=== PATIENT | male | born 1950 | race Caucasian/White ===

== ENCOUNTER 2019-06-20 12:30 | Inpatient (IN) | payer OTHER, MEDICARE ==
[~2019-06-20] VITALS: Ht 182.9 cm; Wt 99.1 kg
[~2019-06-20 12:30] MED LIST: CHLO4 PO; CITA20 PO; LAMO100 PO; LISI5 PO; PRAZ2 PO; SIMV10 PO
[2019-06-20 12:59] LABS: Hematocrit 51.5 % (37.0-53.0); Hemoglobin 14.2 g/dL (13.5-17.5); Mean Corpuscular HGB 27.8 pg (26.0-34.0); Mean Corpuscular HGB Conc 27.6 g/dL (31.5-36.5); Mean Corpuscular Volume 101 fL (80-100); Mean Platelet Volume 11.1 fL (9.1-12.4); NRBC Auto 1.1 /100 WBC (0.0-0.2); Platelet Count 219 K/mm3 (150-400); RDW Coefficient Variation 18.4 % (11.7-14.2); White Blood Cell Count 45.26 K/mm3 (4.00-11.30)
[2019-06-20 13:14] LABS: CPK Creatine Kinase 92 U/L (39-308); Creatine Kinase MB 2.9 ng/mL (0.0-3.6); Creatine Kinase MB Index 3.2 (0.0-4.0); Salicylate 1.9 mg/dL (2.8-20.0); Troponin I 0.087 ng/mL (0.000-0.040)
[2019-06-20 13:15] LABS: PCO2 Arterial > 105 mmHg (35-45); PO2 Arterial 320 mmHg (80-100); pH Blood Arterial 7.17 (7.35-7.45)
[2019-06-20 13:21] LABS: Acetaminophen, Random <2.0 ug/mL (10.0-30.0); Alanine Aminotransfer (ALT/SGP 63 U/L (12-78); Albumin, Blood 3.5 g/dL (3.4-5.0); Alk Phos 73 U/L (50-136); Anion Gap 0 mmol/L (6-16); Aspartate Aminotrans (AST/SGOT 33 U/L (12-37); Bilirubin, Total 0.4 mg/dL (0.1-1.0); Blood Urea Nitrogen 35 mg/dL (8-24); Bun/Creatinine Ratio 30.2 (12.0-20.0); CO2, Blood 36 mmol/L (21-32); Calcium, Blood 7.7 mg/dL (8.5-10.1); Chloride, Blood 100 mmol/L (98-108); Creatinine, Blood 1.16 mg/dL (0.60-1.20); Globulin, Blood 3.4 g/dL (2.2-4.0); Glomerular Filtration Rate >60 (60-); Glucose, Blood 123 mg/dL (70-99); Potassium, Blood 6.5 mmol/L (3.5-5.5); Sodium, Blood 136 mmol/L (136-145); Total Protein, Blood 6.9 g/dL (6.4-8.2)
[2019-06-20 13:25] LABS: Calcium, Ionized (POC) 1.01 mmol/L (1.10-1.46); Chloride (POC) 97 mmol/L (98-108); Creatinine (POC) 1.2 mg/dL (0.8-1.3); Glucose (ISTAT POC) 126 mg/dL (70-99); Hemoglobin (POC) 16.7 g/dL (13.5-17.5); Potassium (POC) 6.2 mmol/L (3.5-5.5); Sodium (POC) 136 mmol/L (135-148); Total CO2 (POC) 39 mmol/L (21-32)
[2019-06-20 13:27] LABS: Source, Urine Catheter
[2019-06-20 13:28] LABS: BASOPHILS PERCENT MAN 0 % (0-2); EOSINOPHILS ABSOLUTE MAN 0.45 K/mm3 (0.00-0.68); EOSINOPHILS PERCENT MAN 1 % (0-6); LYMPHOCYTES ABSOLUTE MAN 31.22 K/mm3 (0.84-5.20); LYMPHOCYTES PERCENT MAN 69 % (21-46); MONOCYTES ABSOLUTE MAN 1.81 K/mm3 (0.16-1.47); MONOCYTES PERCENT MAN 4 % (4-13); MYELOCYTE ABSOLUTE MAN 0.45 K/mm3 (0.00-0.00); MYELOCYTE PERCENT MAN 1 % (0-0); NEUTROPHILS ABSOLUTE MAN 11.31 K/mm3 (1.96-9.15); SEG NEUTROPHILS PERCENT MAN 25 % (41-73); TOTAL CELLS COUNTED 100
[2019-06-20 13:32] LABS: Bilirubin, Urine Neg (Neg); Blood, Urine Neg (Neg); Glucose Qualitative, Urine Neg (Neg); Ketones, Urine Neg (Neg); Leukocyte Esterase, Urine Neg (Neg); Nitrite, Urine Neg (Neg); Protein, Urine 2+ (Neg); Specific Gravity, Urine 1.025 (1.003-1.022); Urobilinogen, Urine 2+ (Normal)
[2019-06-20 13:43] LABS: Appearance, Urine Clear (Clear); Color, Urine Yellow (P-Yellow)
[2019-06-20 13:44] LABS: Red Blood Cells, Urine 0-2 /hpf (0-2)
[2019-06-20 13:45] LABS: Bacteria Few /hpf; Squamous Epithelial Cells Not Seen /hpf (Few)
[2019-06-20 13:47] LABS: U Amphetamine Screen Not Detected; U Barbituate Screen Not Detected; U Benzodiazapine Screen Not Detected; U Buprenorphine Screen Not Detected; U Cannabinoids Screen DETECTED; U Cocaine Screen Not Detected; U Methadone Screen Not Detected; U Methamphetamine Screen Not Detected; U Opiates Screen Not Detected; U Oxycodone Screen Not Detected; U Phencyclidine Screen Not Detected; U Propoxyphene Screen Not Detected
[2019-06-20 13:48] LABS: Influenza A Negative (NEGATIVE); Influenza B Negative (NEGATIVE)
[2019-06-20 15:00] LABS: PCO2 Arterial 75 mmHg (35-45); pH Blood Arterial 7.27 (7.35-7.45)
[2019-06-20 15:01] LABS: PO2 Arterial 56 mmHg (80-100)
--- NOTE | 2019-06-20 15:30 | NUR ---
PT. ARRIVED TO ICU 11 VIA GURNEY. PT INTUBATED, SEDATED WITH PROPAFOL, ANTONIO. WRIST RESTR. IN PLACE. DR. SHEFFIELD AWARE OF CONSULT. MONITOR SHOWS SR. SBP LABILE ON THE PROPAFOL. PT. ON HIS 3 RD LITER FLUID BOLUS FROM ER. PROPAFOL DECREASED TO 30 MCG FROM INITIAL OF [address], BT HYPO. LUNGS SOUNDS WITH COARSE RHONCHI SCATTERED AND WHEEZES T/O. SAO2 > 95%. PT. HAS COPIOUS ORAL SECRETIONS. TEMP CARMONA INTACT WITH SL. ANTHONY URINE.
[2019-06-20 16:40] LABS: Anion Gap 1 mmol/L (6-16); Blood Urea Nitrogen 30 mg/dL (8-24); Bun/Creatinine Ratio 27.8 (12.0-20.0); CO2, Blood 32 mmol/L (21-32); Chloride, Blood 108 mmol/L (98-108); Creatinine, Blood 1.08 mg/dL (0.60-1.20); Glomerular Filtration Rate >60 (60-); Glucose, Blood 111 mg/dL (70-99); Potassium, Blood 4.6 mmol/L (3.5-5.5); Sodium, Blood 141 mmol/L (136-145)
--- NOTE | 2019-06-20 17:00 | NUR ---
CONSULT DONE BY DR. SHEFFIELD. ORDERS FOR CALCIUM GLUCONATE RECEIVED FOR LEVEL OF 5.6.
[2019-06-20 17:08] LABS: Calcium, Blood 5.6 mg/dL (8.5-10.1)
--- NOTE | 2019-06-20 19:00 | NUR ---
REPORT TO DOMINIC. PICC PLACEMENT BEING DONE AT THIS TIME. PT. CONT WITH LABILE SBP. PROPAFOL DECREASED TO 25 MCG.
--- NOTE | 2019-06-20 19:15 | NUR ---
ASSUMED CARE BEDSIDE REPORT RECIEVED. PICC LINE INSERTION IN PROGRESS AT THIS TIME. PT IS INTUBATED AND SEDATED. PT RESTLESS AT TIMES, NOT FOLLOWING COMMANDS. VENT SETTINGS AC 18, TV 450, PEEP 5, FIO2 60%. PT WITH SBP 80-90'S. NS INFUSING AT 100 ML/HR. PROPOFOL AT 20 MCG/KG/MIN. OGT IN PLACE, CLAMPED. SBW RESTRAINTS IN PLACE. CARMONA TEMP PROBE IN PLACE. WILL CONTINUE TO MONITOR.
[2019-06-20 20:18] LABS: Bicarbonate Venous 27.6 mmol/L (24.0-30.0); PCO2 Venous 71.4 mmHg (38-42); PO2 Venous 54.1 mmHg (38-42); pH Blood Venous 7.27 (7.34-7.37)
[2019-06-21 03:26] LABS: Hematocrit 42.4 % (37.0-53.0); Hemoglobin 12.1 g/dL (13.5-17.5); Mean Corpuscular HGB 28.1 pg (26.0-34.0); Mean Corpuscular HGB Conc 28.5 g/dL (31.5-36.5); Mean Corpuscular Volume 99 fL (80-100); Mean Platelet Volume 10.7 fL (9.1-12.4); NRBC ABSOLUTE 0.13 K/mm3 (0.00-0.02); NRBC Auto 0.5 /100 WBC (0.0-0.2); Platelet Count 156 K/mm3 (150-400); RDW Standard Deviation 61.3 fL (35.1-46.3); White Blood Cell Count 25.92 K/mm3 (4.00-11.30)
[2019-06-21 03:46] LABS: Albumin, Blood 2.6 g/dL (3.4-5.0); Bilirubin, Total 0.4 mg/dL (0.1-1.0); Bun/Creatinine Ratio 26.9 (12.0-20.0); Creatinine, Blood 1.3 mg/dL (0.60-1.20); Globulin, Blood 2.5 g/dL (2.2-4.0); Potassium, Blood 5.6 mmol/L (3.5-5.5); Total Protein, Blood 5.1 g/dL (6.4-8.2)
[2019-06-21 04:26] LABS: BAND PERCENT MAN 6 % (0-8); BASOPHILS PERCENT MAN 0 % (0-2); EOSINOPHILS PERCENT MAN 0 % (0-6); LYMPHOCYTES ABSOLUTE MAN 11.66 K/mm3 (0.84-5.20); LYMPHOCYTES PERCENT MAN 45 % (21-46); MONOCYTES ABSOLUTE MAN 0.51 K/mm3 (0.16-1.47); MONOCYTES PERCENT MAN 2 % (4-13); MYELOCYTE ABSOLUTE MAN 0.25 K/mm3 (0.00-0.00); MYELOCYTE PERCENT MAN 1 % (0-0); NEUTROPHILS ABSOLUTE MAN 13.47 K/mm3 (1.96-9.15); SEG NEUTROPHILS PERCENT MAN 46 % (41-73); TOTAL CELLS COUNTED 100
[2019-06-21 05:43] LABS: PCO2 Arterial 61.3 mmHg (35-45); pH Blood Arterial 7.32 (7.35-7.45)
--- NOTE | 2019-06-21 06:06 | NUR ---
SHIFT SUMMARY NO ACUTE CHANGES THIS SHIFT. PT HAS REMAINED ON VENT, SETTINGS AC 18, TV 450, PEEP 5, FIO2 70. SBP HAS SLOWLY TRENDED DOWN THROUGHOUT THE SHIFT, REQUIRING LEVOPHED UP TO 8 MCG/MIN. PICC REMAINS C/D/I TO ASHOK WITH LEVOPHED CURRENTLY INFUSING AT 6 MCG/MIN, PROPOFOL AT 40 MCG/KG/MIN, AND NS AT 100 ML/HR. OGT TO LIS WITH BILE OUTPUT NOTED. CARMONA TEMP PROBE REMAINS IN PLACE WITH CLOUDY ORANGE URINE OUTPUT NOTED. SBW RESTRAINTS REMAIN IN PLACE. RESTLESS AT TIMES, AND WITHDRAWS TO NOXIOUS STIMULI. NO FAMILY AT BEDSIDE. WILL CONTINUE TO MONITOR AND REPORT OFF TO ONCOMING RN.
--- NOTE | 2019-06-21 07:33 | NUR ---
START OF SHIFT NOTE: RECEIVED REPORT FROM DOMINIC BUNDY RN, ASSUMED CARE, PATIENTIS SEDATED AND ON MECHANICAL VENTILATION, SOME GROSS EXTREMITY MOVEMENT NOTED WHEN LEGS ARE TOUCHED OR ORAL CARE IS PERFORMED, PATIENT IS UNABLE TO FOLLOW COMMANDS AT THIS TIME, NO EYE OPENING NOTED, VENT SETTINGS ARE 18/5/450/FiO2 70 %, PROPOFOL AT 40 MCG, PATIENT ALSO HAS LEVOPHED INFUSING AT 6 MCG, ALSO HAS NS INFUSING AT 100 CC/HR AND ZOSYN AT 25 CC/HR, VSS, TEMP SLIGHTLY ELEVATED AT 99.1, RESTRAINTS IN PLACE, OG TO LIS, SOME BILE LIKE FLUIDS OUT, ORAL CARE DONE, LUNG SOUNDS ARE COARSE AND RHONCHI NOTED, SR, BOWEL TONES HYPOACTIVE, CARMONA CATHETER IN PLACE, DRAINING YELLOW/INK URINE, PATIENT LOOKS COMFORTABLE AT THIS TIME, CALL LIGHT IN REACH, WILL CONTINUE TO MONITOR.
--- NOTE | 2019-06-21 07:50 | NUR ---
DR. BERNAL IN TO SEE PATIENT, NEW ORDERS RECEIVED.
--- NOTE | 2019-06-21 08:16 | NUR ---
PATIENT'S FRIEND MERNA, WHO FOUND PATIENT DOWN, CALLED AND UPDATE WAS PROVIDED, HE WILL UPDATE FAMILY, PATIENT'S MOTHER AND BROTHER, IN [place], [place].
--- NOTE | 2019-06-21 08:53 | NUR ---
DR. CORNELIUS IN TO SEE PATIENT, FOLLOWING PATIENT SINCE 2013 FOR HIS LYMPHOMA, PLEASE SEE HIS NOTE.
[2019-06-21 09:33] LABS: Uric Acid, Blood 7.9 mg/dL (3.5-7.2)
--- NOTE | 2019-06-21 10:16 | NUR ---
DR. SHEFFIELD IN TO SEE PATIENT, NEW ORDERS RECEIVED.
--- NOTE | 2019-06-21 12:00 | NUR ---
PATIENT CONTINUES ON MECHANICAL VENTILATION, SETTINGS UNCHANGED, LEVOPHED DECREASED TO 5 MCG, PROPOFOL DECREASED TO 25, PRECEDEX AT O.7 AT THIS TIME, PATIENT RESPONDS TO STIMULI, BUT DOES NOT OPEN HIS EYES OR FOLLOW ANY COMMANDS, VSS, ORAL CARE PROVIDED AND FREQUENT REPOSITIONING, CALL LIGHT IN REACH, WILL CONTINUE TO MONITOR.
--- NOTE | 2019-06-21 12:24 | NUR ---
ECHOCARDIOGRAM COMPLETED
--- NOTE | 2019-06-21 16:33 | NUR ---
PATIENT'S DAUGHTER AMOL CALLED AND WAS PROVIDED WITH AN UPDATE ON PATIENT CONDITION.
--- NOTE | 2019-06-21 17:42 | NUR ---
SHIFT SUMMARY NOTE: NO ACUTE EVENTS DURING THIS SHIFT, PATIENT IS ON PROPOFOL AT 20, LEVOPHED AT 3, AND PRECEDEX AT 0.7, VSS, CONTINUES TO HAVE A LOW GRADE TEMP OF 100.2, DR. SHEFFIELD AWARE, CONTINUES ON MECHANICAL VENTILATION, SETTINGS 18/5/450 Vt/FiO2 65 %, PATIENT HAS PINPOINT PUPILS, AND CONTINUES TO BE UNRESPONSIVE, NONPURPOSEFUL MOVEMENTS, RESPONDS TO PAIN, UNABLE TO FOLLOW COMMANDS, ECHO WAS DONE AND SHOWED EF OF 70-75 %, DR. CORNELIUS IN, BUT WILL NOT TREAT ANYTHING AT THIS TIME, PATIENT CONTINUES TO RECEIVE VANCO AND ZOSYN, RESTRAINTS IN PLACE, CARMONA DRAINING LARGE AMOUNTS OF DARK YELLOW URINE WHICH HAS LESS CLOUDINESS AND SEDIMENT, FOR DETAILS SEE SHIFT ASSESSMENT DOCUMENTATION AND NURSES NOTES, CALL LIGHT IN REACH, WILL CONTINUE TO MONITOR, AND GIVE REPORT TO ONCOMING HEALTH AND SAFETY TECHNICIAN.
--- NOTE | 2019-06-21 22:13 | NUR ---
ASSUMPTION OF CARE: PT INTUBATED AND SEDATED. ROUSES TO NOXIOUS STIMULI. DOES NOT FOLLOW COMMANDS. PUPILS PINPOINT AND NOT REACTIVE.LUNG SOUNDS COURSE IN UPPER LOBES AND DIM IN BASES. AC VENT SETTINGS 18/450/5/65%. NSR, ELEVATED T WAVE, HR IN THE 70S, SBP STABLE IN 100-110S. BT X 4. CARMONA IN PLACE DRAINING TO GRAVITY. PICC TO ASHOK, INFUSING. LEVO AT 2 MCG, PROP AT 20, PRECEDEX AT 0.7MCG.
[2019-06-22 03:25] LABS: Base Excess Venous 7.4 mmol/L; Bicarbonate Venous 29.4 mmol/L (24.0-30.0); PO2 Venous 40.4 mmHg (38-42); pH Blood Venous 7.41 (7.34-7.37)
[2019-06-22 03:46] LABS: Hematocrit 45.6 % (37.0-53.0); Hemoglobin 13.5 g/dL (13.5-17.5); Mean Corpuscular HGB 28.4 pg (26.0-34.0); Mean Corpuscular HGB Conc 29.6 g/dL (31.5-36.5); Mean Platelet Volume 11.5 fL (9.1-12.4); NRBC ABSOLUTE 0.02 K/mm3 (0.00-0.02); NRBC Auto 0.1 /100 WBC (0.0-0.2); Platelet Count 169 K/mm3 (150-400); RDW Coefficient Variation 17.8 % (11.7-14.2); RDW Standard Deviation 58.6 fL (35.1-46.3); Red Blood Cell Count 4.76 M/mm3 (4.30-5.90); White Blood Cell Count 22.75 K/mm3 (4.00-11.30)
[2019-06-22 03:49] LABS: Mean Corpuscular Volume 96 fL (80-100)
[2019-06-22 04:03] LABS: Anion Gap 3 mmol/L (6-16); Blood Urea Nitrogen 24 mg/dL (8-24); Bun/Creatinine Ratio 24.3 (12.0-20.0); CO2, Blood 31 mmol/L (21-32); Calcium, Blood 7.5 mg/dL (8.5-10.1); Chloride, Blood 109 mmol/L (98-108); Creatinine, Blood 0.99 mg/dL (0.60-1.20); Glomerular Filtration Rate >60 (60-); Glucose, Blood 142 mg/dL (70-99); Phosphorus, Blood 2.8 mg/dL (2.5-4.9); Potassium, Blood 5.4 mmol/L (3.5-5.5); Sodium, Blood 143 mmol/L (136-145)
[2019-06-22 04:24] LABS: BAND PERCENT MAN 2 % (0-8); BASOPHILS PERCENT MAN 0 % (0-2); EOSINOPHILS PERCENT MAN 0 % (0-6); LYMPHOCYTES ABSOLUTE MAN 9.55 K/mm3 (0.84-5.20); LYMPHOCYTES PERCENT MAN 42 % (21-46); MONOCYTES ABSOLUTE MAN 0.68 K/mm3 (0.16-1.47); MONOCYTES PERCENT MAN 3 % (4-13); MYELOCYTE ABSOLUTE MAN 0.22 K/mm3 (0.00-0.00); MYELOCYTE PERCENT MAN 1 % (0-0); NEUTROPHILS ABSOLUTE MAN 12.28 K/mm3 (1.96-9.15); SEG NEUTROPHILS PERCENT MAN 52 % (41-73); TOTAL CELLS COUNTED 100
--- NOTE | 2019-06-22 06:05 | NUR ---
SHIFT SUMMARY: PT INTUBATED AND SEDATED. RESPONDS TO PAIN, REPOSITIONING, AND ORAL CARE. LUNG SOUNDS COARSE AND DIM IN BASES. AC VENT SETTINGS 18/450/5/65%. SP02 >90%. SBP IN THE 130S ON LEVOPHED. LEVOPHED CURRENTLY OFF AND SBP IS 90S AND STABLE. HR IN THE 70S. BT X 4. OG PULLED OUT TOWARDS END OF SHIFT. NEW OG PLACED AND CONNECTED TO LIS. TEMP CARMONA IN PLACE DRAINING DARK COLORED URINE. RLE RED AND FLAKY. PICC TO ASHOK. LEVO ON STANDBY, PROP AT 20MCG, PRECEDEX AT 0.7, NS AT TKO. CXR DONE THIS AM.
--- NOTE | 2019-06-22 10:23 | NUR ---
PT VERY AGITATED AND SHAKING HEAD WITH ORAL CARE AND WOULD CALM WHEN ORAL CARE COMPLETED. PT VENT SETTINGS NOTED. IVF NOTED. PT IS RESTRAINED WILL CONT TO NEED FOR SAFETY ISSUSE OF EXTUBATION.
--- NOTE | 2019-06-22 14:50 | NUR ---
APPROX. [address] AND BACK 1250 W/O INCIDENT. PT NOTED WITH SOME MUCUS BUILD UP AND SATS SL DOWN BU RECOVERED WITH SX. TF VHP STARTED AT 2O ML AND WILL ADVANCE ORDERED. NG PLACEMENT NOTED AT #3 BLACK LINE AND ANCHORED TO E.T. TUBE. VS NOTED.
--- NOTE | 2019-06-22 20:00 | NUR ---
ASSUMPTION OF CARE: PT INTUBATED AND SEDATED. ABLE TO FOLLOW COMMANDS AND OPENS EYES TO VERBAL STIMULUS. SBP STABLE IN THE 100S, HR 60-70. IN NSR. LUNG SOUNDS CLEAR IN UPPER LOBES, DIM IN BASES MARICHUY ON R SIDE. VENT SETTINGS 18/450/PEEP 5/ FIO2 45%. SPO2 >90%. OG IN PLACE WITH VITAL HIGH PROTEIN AT 20 ML/HR. TO INCREASE BY 15 MLS Q [address] TEM[address] CARMONA IN PLACE DRAINING CLEAR YELLOW URINE. PICC TO ASHOK INFUSING WITH PROPOFOL AT 20 MCG AND PRECEDEX AT 0.7MCG. PT NOT IN ANY DISTRESS AT THIS TIME.
--- NOTE | 2019-06-23 00:01 | NUR ---
PT SP02 89%. RT INCREASED FIO2 TO 100% WITH LITTLE CHANGE IN SPO2. NOTIFIED DR AGUILAR. ORDERS RECEIVED TO INCREASE PEEP TO 10. PEEP INCREASED AND FI02 DECREASED TO 70%. PT DESAT TO 89%. RT INCREASED FIO2 TO 80%. PT SPO2 CURRENTLY AT 92% BED PERCUSSION AND VIBRATION ON
[2019-06-23 03:44] LABS: BASOPHILS ABSOLUTE AUTO 0.04 K/mm3 (0.00-0.23); BASOPHILS PERCENT AUTO 0 % (0-2); EOSINOPHILS ABSOLUTE AUTO 0.02 K/mm3 (0.00-0.68); EOSINOPHILS PERCENT AUTO 0 % (0-6); Hematocrit 43.7 % (37.0-53.0); Mean Corpuscular HGB 28.2 pg (26.0-34.0); Mean Corpuscular HGB Conc 29.7 g/dL (31.5-36.5); Mean Corpuscular Volume 95 fL (80-100); Mean Platelet Volume 11.1 fL (9.1-12.4); Platelet Count 134 K/mm3 (150-400); RDW Coefficient Variation 17.3 % (11.7-14.2); RDW Standard Deviation 57.6 fL (35.1-46.3); Red Blood Cell Count 4.61 M/mm3 (4.30-5.90); White Blood Cell Count 18.28 K/mm3 (4.00-11.30)
[2019-06-23 03:47] LABS: IMMATURE GRAN ABSOLUTE AUTO 0.23 K/mm3 (0.00-0.10); IMMATURE GRAN PERCENT AUTO 1 % (0-1); LYMPHOCYTES ABSOLUTE AUTO 7.39 K/mm3 (0.84-5.20); LYMPHOCYTES PERCENT AUTO 40 % (21-46); MONOCYTES ABSOLUTE AUTO 0.85 K/mm3 (0.16-1.47); MONOCYTES PERCENT AUTO 5 % (4-13); NEUTROPHILS ABSOLUTE AUTO 9.75 K/mm3 (1.96-9.15); NEUTROPHILS PERCENT AUTO 53 % (41-73)
[2019-06-23 04:02] LABS: Anion Gap 5 mmol/L (6-16); Blood Urea Nitrogen 22 mg/dL (8-24); Bun/Creatinine Ratio 24.9 (12.0-20.0); CO2, Blood 29 mmol/L (21-32); Calcium, Blood 8.2 mg/dL (8.5-10.1); Chloride, Blood 108 mmol/L (98-108); Creatinine, Blood 0.89 mg/dL (0.60-1.20); Glomerular Filtration Rate >60 (60-); Glucose, Blood 119 mg/dL (70-99); Magnesium, Blood 2.5 mg/dL (1.6-2.4); Phosphorus, Blood 4.3 mg/dL (2.5-4.9); Potassium, Blood 5.2 mmol/L (3.5-5.5); Sodium, Blood 142 mmol/L (136-145)
[2019-06-23 04:58] LABS: PCO2 Arterial 48.6 mmHg (35-45); PO2 Arterial 61.3 mmHg (80-100); pH Blood Arterial 7.42 (7.35-7.45)
--- NOTE | 2019-06-23 06:14 | NUR ---
SHIFT SUMMARY: PT MORE ALERT THIS SHIFT. ABLE TO OPEN EYES TO VERBAL STIMULI, FOLLOW COMMANDS. PT WILL ATTEMPT TO SELF EXTUBATE WHEN AGITATED. LUNG SOUNDS CLEAR IN UPPER LOBES, DIM IN BASES ESPECIALLY R SIDE. VENT SETTINGS 18/450/PEEP 10/FIO2 55%. PT IN SR, SBP STABLE IN THE 110-120. HR IN THE 60S. NO PRESSER SUPPORT NEEDED THIS SHIFT. BT X 4. NO BM. OG IN PLACE WITH VHP TF AT GOAL 50MLS/HR. TEMP CARMONA IN PLACE DRAINING YELLOW/GREEN URINE. PICC IN ASHOK INFUSING WITH PRECEDEX 0.7MCG, PROP AT 20MCG AND NS AT TKO. PRN ATIVAN GIVEN X 2 DURING SHIFT.
--- NOTE | 2019-06-23 12:45 | NUR ---
PT OOB TO CHAIR WITH MOD STANDBY ASSIST. PT WAS SL DIZZY BUT THIS SHORTLY PASSED. SATS LABILE BUT SEEMS TO BE MOST ACCUARTE WIITH EAR PROBE. WILL CONSIDER FOOD AND DRINK SHORTLY.
--- NOTE | 2019-06-23 14:32 | NUR ---
PT TOLERATING EXTUBATION WELL. SATS HAVE BEEN LABILE BUT MAY BE DUE TO POSTITIONAL ISSUES. PT IS ON O2 AT 5L, STATES HE ONLY HAS LOW 90'S SATS WHILE ON RA AT HOME. PT WAS MOVED TO CHAIR WITH MOD 1 PERSON SBA. HAS PASSES MIRANDA SWALLOW EVAL WELL AND TAKING PO W/O DIFFICULTY. WILL INITATE FULL LIQ. DIET FOR NOW. PT VERY CONTENT IN CHAIR.
--- NOTE | 2019-06-23 17:59 | NUR ---
PT HAS BEEN SETTING UP IN CHAIR RESTING WITH O2 AT 5L AND STATS HAVE REMAINED IN LOW 90-92 RANGE. PT HAS BEEN TAKING PO WELL AND W/O ANY DISTRESS. HE IS SETTING WATCHING TV AND WISHES TO REMAIN IN CHAIR. PICC DSG CHANGED AND CAME OUT 1 CM, WHICH WAS REPORTED AND DOCUMNETATION CHANGED TO MATCH. VSS, I/O NOTED.
--- NOTE | 2019-06-23 21:41 | NUR ---
ASSUME CARE RECEIVED REPORT FROM SAAD GOMEZ. PATIENT IN CHAIR, SATS IN 90S ON 5L NC. HR 70-90S. PATIENT ON FULL LIQUID DIET, ADVANCING TO REGULAR ADA DIET FOR AM. PATIENT AWAKE, A&O AND FOLLOWS COMMANDS, APPRORPIATE. LUNGS CLEAR WITH DIMINISHED BASES. WILL CONTINUE TO MONITOR.
[2019-06-24 04:40] LABS: BASOPHILS ABSOLUTE AUTO 0.06 K/mm3 (0.00-0.23); BASOPHILS PERCENT AUTO 0 % (0-2); EOSINOPHILS ABSOLUTE AUTO 0.17 K/mm3 (0.00-0.68); EOSINOPHILS PERCENT AUTO 1 % (0-6); Hematocrit 44.5 % (37.0-53.0); Hemoglobin 13.2 g/dL (13.5-17.5); Mean Corpuscular HGB 28.2 pg (26.0-34.0); Mean Corpuscular HGB Conc 29.7 g/dL (31.5-36.5); Mean Corpuscular Volume 95 fL (80-100); Platelet Count 121 K/mm3 (150-400); RDW Coefficient Variation 17.9 % (11.7-14.2); Red Blood Cell Count 4.68 M/mm3 (4.30-5.90); White Blood Cell Count 19.26 K/mm3 (4.00-11.30)
[2019-06-24 04:41] LABS: IMMATURE GRAN ABSOLUTE AUTO 0.25 K/mm3 (0.00-0.10); IMMATURE GRAN PERCENT AUTO 1 % (0-1); LYMPHOCYTES ABSOLUTE AUTO 9.58 K/mm3 (0.84-5.20); LYMPHOCYTES PERCENT AUTO 50 % (21-46); MONOCYTES PERCENT AUTO 7 % (4-13); NEUTROPHILS PERCENT AUTO 41 % (41-73)
[2019-06-24 04:53] LABS: Anion Gap 4 mmol/L (6-16); Blood Urea Nitrogen 17 mg/dL (8-24); CO2, Blood 32 mmol/L (21-32); Calcium, Blood 8.4 mg/dL (8.5-10.1); Chloride, Blood 108 mmol/L (98-108); Creatinine, Blood 0.74 mg/dL (0.60-1.20); Glomerular Filtration Rate >60 (60-); Glucose, Blood 74 mg/dL (70-99); Magnesium, Blood 2.2 mg/dL (1.6-2.4); Phosphorus, Blood 3.8 mg/dL (2.5-4.9); Potassium, Blood 4.4 mmol/L (3.5-5.5); Sodium, Blood 144 mmol/L (136-145)
[2019-06-24 05:44] LABS: BAND PERCENT MAN 2 % (0-8); BASOPHILS PERCENT MAN 0 % (0-2); EOSINOPHILS PERCENT MAN 0 % (0-6); LYMPHOCYTES ABSOLUTE MAN 9.43 K/mm3 (0.84-5.20); LYMPHOCYTES PERCENT MAN 49 % (21-46); METAMYELOCYTE ABSOLUTE MAN 0.19 K/mm3 (0.00-0.00); METAMYELOCYTE PERCENT MAN 1 % (0-0); MONOCYTES ABSOLUTE MAN 1.34 K/mm3 (0.16-1.47); MONOCYTES PERCENT MAN 7 % (4-13); NEUTROPHILS ABSOLUTE MAN 6.74 K/mm3 (1.96-9.15); OTHER CELL PERCENT MAN 8 % (0-0); SEG NEUTROPHILS PERCENT MAN 33 % (41-73); TOTAL CELLS COUNTED 100
--- NOTE | 2019-06-24 06:12 | NUR ---
SHIFT SUMMARY PATIENT SLEPT WELL ON BIPAP/CPAP HE DOES AT HOME. ALERT & ORIENTED. NSR. VSS. AFEBRILE. PATIENT HAD ONE BM, SOFT AND BROWN THIS SHIFT. NO OTHER EVENTS OVERNIGHT. WILL CONTINUE TO MONITOR UNTIL REPORT GIVEN TO DAY SHIFT RN.
--- NOTE | 2019-06-24 10:32 | NUR ---
REPORT CALLED TO MARGIE NASH AND PT TO TRANSPORT TO [facility] VIA W/C JOSE DANIEL.
--- NOTE | 2019-06-24 17:27 | NUR ---
SHIFT SUMMARY PATIENT IS PLEASANT, ALERT AND ORIENTED. HE HAS BEEN INDEPENDENT IN THE ROOM. NO ACUTE CONCERNS AT THIS TIME. HE HAS BEEN PLEASANT SINCE BEING ON THE FLOOR. HE DENIES ANY CONCERNS. HE REFUSES ANY PAIN AT THIS TIME.
--- NOTE | 2019-06-25 04:27 | NUR ---
AWAKE AT INTERVALS TO GO TO BATHROOM. UP IN THE ROOM AD JUAN A, A/O X 4. CONTINUOUS PULSE OX MAINTAINED. NOTE MID TO LOW 90'S%. CALL LIGHT IN REACH. DENIED DISTRESS WHEN ASKED. AFFECT CHEERFUL WHEN SPEAKING TO NURSE.
[2019-06-25 05:28] LABS: Hematocrit 42.5 % (37.0-53.0); Hemoglobin 12.4 g/dL (13.5-17.5); Mean Corpuscular HGB 27.7 pg (26.0-34.0); Mean Corpuscular HGB Conc 29.2 g/dL (31.5-36.5); Mean Corpuscular Volume 95 fL (80-100); Mean Platelet Volume 11.4 fL (9.1-12.4); Platelet Count 118 K/mm3 (150-400); RDW Coefficient Variation 17.5 % (11.7-14.2); RDW Standard Deviation 59.4 fL (35.1-46.3); Red Blood Cell Count 4.47 M/mm3 (4.30-5.90); White Blood Cell Count 16.12 K/mm3 (4.00-11.30)
[2019-06-25 05:40] LABS: Anion Gap 4 mmol/L (6-16); Blood Urea Nitrogen 16 mg/dL (8-24); Bun/Creatinine Ratio 23.4 (12.0-20.0); CO2, Blood 31 mmol/L (21-32); Calcium, Blood 8.1 mg/dL (8.5-10.1); Chloride, Blood 107 mmol/L (98-108); Creatinine, Blood 0.69 mg/dL (0.60-1.20); Glomerular Filtration Rate >60 (60-); Glucose, Blood 73 mg/dL (70-99); Potassium, Blood 4.1 mmol/L (3.5-5.5); Sodium, Blood 142 mmol/L (136-145)
[2019-06-25 09:26] LABS: International Normalized Ratio 1.01; Prothrombin Time Results 10.7 Sec (9.7-11.5)
[2019-06-25] MEDS ORDERED: Sudogest60 MG PO (11:02)
[2019-06-25] MEDS ORDERED: ALLERCLEAR10 MG PO (11:03)
[2019-06-25] MEDS ORDERED: TIOT18 INH (11:05)
[2019-06-25] MEDS ORDERED: Flonase 0.05% N16 GM (11:05)
[2019-06-25] MEDS ORDERED: ALBU90OI INH (17:18)
[2019-06-25] MEDS ORDERED: COLACE100 MG PO (17:19)
[2019-06-25] MEDS ORDERED: LISI20 PO (17:22)
[2019-06-25] MEDS ORDERED: OXYM.05NI (17:24)
[2019-06-25] MEDS ORDERED: STRIVERDI RESPIM4 GM INH (17:43)
--- NOTE | 2019-06-25 18:09 | NUR ---
PATIENT IS A/OX4, UP INDEPENDENTLY IN ROOM. VSS, MAINTAINING SATS ON 3LO2 VIA NC. LUNGS DIMINISHED THROUGHOUT. 3 LUMEN PICC TO RUE WNL AND SL. DENIES ANY PAIN OR DISCOMFORT. NECK LYMPH NODE BIOPSY DONE TODAY, DR CORNELIUS FOLLOWING FOR ONCOLOGY. NO ACUTE CHANGES THIS SHIFT.
--- NOTE | 2019-06-26 02:01 | NUR ---
AWAKE AT INTERVALS TO GO TO THE BATHROOM. CONTINUOUS O2 MONITORING MAINTAINED. SEEMS TO DESAT WHEN IN THE BATHROOM, BUT GOES BACK TO NORMAL WHEN BACK TO BED. ALERT AND ORIENTED. COMPLIANT WITH PLAN OF CARE. CALL LIGHT IN REACH. O2 AT 3L/NC.
[2019-06-26 05:24] LABS: Hematocrit 42.6 % (37.0-53.0); Hemoglobin 12.5 g/dL (13.5-17.5); Mean Corpuscular HGB 27.7 pg (26.0-34.0); Mean Corpuscular HGB Conc 29.3 g/dL (31.5-36.5); Mean Corpuscular Volume 95 fL (80-100); Mean Platelet Volume 11.2 fL (9.1-12.4); Platelet Count 124 K/mm3 (150-400); RDW Standard Deviation 58.3 fL (35.1-46.3); Red Blood Cell Count 4.51 M/mm3 (4.30-5.90); White Blood Cell Count 17.41 K/mm3 (4.00-11.30)
[2019-06-26 05:48] LABS: Anion Gap 6 mmol/L (6-16); Blood Urea Nitrogen 17 mg/dL (8-24); Bun/Creatinine Ratio 23.5 (12.0-20.0); CO2, Blood 31 mmol/L (21-32); Calcium, Blood 8.1 mg/dL (8.5-10.1); Chloride, Blood 105 mmol/L (98-108); Creatinine, Blood 0.72 mg/dL (0.60-1.20); Glomerular Filtration Rate >60 (60-); Glucose, Blood 73 mg/dL (70-99); Sodium, Blood 142 mmol/L (136-145)
[2019-06-26 11:51] LABS: Performing Lab SYMBIODX; Test Name FLOW
--- NOTE | 2019-06-26 16:14 | NUR ---
Met with patient to review his needs. pt states he is feeling much bettter today. He relayed the stressors of the past few months and his depression. He states he is happier and wants to plan a trip with friends and to enjoy life. He states he gets most of his care from the [facility]. Review with him startegies of travel and safety. He does not have an advance directive or polst. He wants to fill out an AD. He is going to ask the person he wants to make decisions if they will do accept that duty. Gabino from [facility] was in to review startegies of care. Pt hisgh risk for readmission.
--- NOTE | 2019-06-26 18:07 | NUR ---
PATIENT A/OX4, UP INDEPENDENTLY IN ROOM. VSS, WEANED TO 3LO2 AT REST TO MAINTAIN SATS >90%. PATIENT DESATS WITH ACTIVITY. CONTINUES ON PREDNISONE AND LASIX. 3 LUMEN PICC TO R UPPER ARM WNL AND SL. PATIENT CALLS APPROPRIATELY FOR ASSISTANCE. TOLERATING DIET.
--- NOTE | 2019-06-26 19:38 | NUR ---
ASPEN JUST HAD GOLD CUTTER LEAVE THE ROOM. HE CAME BY TO INFORM THE PATIENT THEY HAD FOUND HIS TRUCK THAT WAS STOLEN. ASPEN IS VERY HAPPY. HE STATES HE IS DOING BETTER AND IS HOPING HE CAN GO HOME TOMORROW. HE HAD TO STAY ANOTHER NIGHT HIS OXYGEN DESATS WHEN HE IS UP WALKING. ENCOURAGED DEEP BREATHING EXERCISES WHILE IN BED AND WHILE WALKING TO HELP WITH HIS BREATHING AND COUGHING. HE SAID HE WILL TRY AND REMEMBER IT. CALL LIGHT IN REACH. WILL CONTINUE TO MONITOR.
--- NOTE | 2019-06-26 21:49 | NUR ---
ASPEN IS SITTING ON SIDE OF BED, BRUSHING HIS HAIR, AND WATCHING TV. DENIES ANY NEEDS. STATES HE IS IN A BETTER MOOD, THE VITAMIN MANAGER CAME IN EARLIER AND INFORMED HIM THEY GOT THE MIRTA WHO STOLE HIS NEW TRUCK. THE TRUCK WAS RECOVERED WITH MINIMAL DAMANGE. HE STATES THAT IS THE BEST NEWS HES GOTTEN ALL DAY. CALL LIGHT IN REACH.
--- NOTE | 2019-06-26 22:36 | NUR ---
ASPEN SITTING ON SIDE OF BED, SNACK GIVEN. DENIES ANY OTHER NEEDS, JUST GOT BACK FROM BATHROOM.
--- NOTE | 2019-06-27 01:04 | NUR ---
ASPEN IS ASLEEP WITH CPAP ON, SATS ARE IN THE 90'S HR REGULAR. NO SIGN OF DISTRESS NOTED. CALL LIGHT IN REACH.
--- NOTE | 2019-06-27 02:50 | NUR ---
PATIENT SLEEPING WITH CPAP ON SATS AT 93%. NO DISTRESS NOTED. CALL LIGHT IN REACH.
[2019-06-27 05:51] LABS: Hematocrit 41.2 % (37.0-53.0); Hemoglobin 12.3 g/dL (13.5-17.5); Mean Corpuscular HGB Conc 29.9 g/dL (31.5-36.5); Mean Corpuscular Volume 94 fL (80-100); Mean Platelet Volume 11.3 fL (9.1-12.4); Platelet Count 141 K/mm3 (150-400); RDW Coefficient Variation 16.8 % (11.7-14.2); RDW Standard Deviation 56.9 fL (35.1-46.3); Red Blood Cell Count 4.39 M/mm3 (4.30-5.90); White Blood Cell Count 17.54 K/mm3 (4.00-11.30)
--- NOTE | 2019-06-27 05:52 | NUR ---
SHIFT SUMMARY: ASPEN IS ON 3 LITERS O2 MAINTAING SATS IN THE HIGH 90'S. HE DESATS WITH EXERTION BUT RECOVERY IS QUICK. LUNG SOUNDS HAVE BEEN DIMINISHED WITH NO COUGH TONIGHT. HE WORE HIS CPAP TO SLEEP BUT WOULD MOVE AND IT WOULD ADJUST JUST SLIGHTLY TO CAUSE HIS SATS TO DROP. HE WOULD WAKE UP AND FIX IT WHICH WOULD BRING HIS OXYGEN SATS BACK TO NORMAL. HE IS INDEPENDANT IN THE ROOM. HOPES HE CAN GO HOME TODAY. CALLS APPROPRIATLY. NO ACUTE CHANGES THIS SHIFT.
[2019-06-27 06:08] LABS: Anion Gap 2 mmol/L (6-16); Blood Urea Nitrogen 21 mg/dL (8-24); Bun/Creatinine Ratio 26.4 (12.0-20.0); CO2, Blood 35 mmol/L (21-32); Calcium, Blood 8.3 mg/dL (8.5-10.1); Chloride, Blood 106 mmol/L (98-108); Glomerular Filtration Rate >60 (60-); Glucose, Blood 76 mg/dL (70-99); Potassium, Blood 3.9 mmol/L (3.5-5.5); Sodium, Blood 143 mmol/L (136-145)
[2019-06-27] MEDS ORDERED: DELTASONE20 MG PO (11:15)
[2019-06-27] MEDS ORDERED: AMOCLA875 PO (11:16)
--- NOTE | 2019-06-27 13:58 | NUR ---
PATIENT DISCHARGE: PATIENT DISCHARGED TO HOME THIS SHIFT. MEDICATION RECONCILIATION COMPLETED; MED LIST FAXED TO [facility]. DISCHARGE EDUCATION COMPLETED WITH PATIENT. PATIENT TRANSPORTED TO EXIT BY [facility] STAFF WITH WHEELCHAIR AT 1357. PATIENT DEPARTED [facility] VIA PRIVATE AUTO.
== END 2019-06-27 13:56 | disposition home or self-care (01) | DRG 871 ==
LOC: ER 12:30 → ICUW 14:46 → MEDS 14:46 → ICUW 15:15 → MEDS 06-24 10:57 → ENPENDDIS 06-27 10:00 → MEDS 06-27 13:56
PROVIDERS: Emergency Medicine; Internal Medicine Critical Care Medicine; Internal Medicine Hematology & Oncology; Internal Medicine Pulmonary Disease; Nurse Practitioner Acute Care; ADMIT Internal Medicine
PROC: 0BH17EZ Insertion of Endotracheal Airway into Trachea, Via Natural or Artificial Opening (ICD-10-PCS; principal; 2019-06-20)
PROC: 5A1945Z Respiratory Ventilation, 24-96 Consecutive Hours (ICD-10-PCS; 2019-06-20)
PROC: 02HV33Z Insertion of Infusion Device into Superior Vena Cava, Percutaneous Approach (ICD-10-PCS; 2019-06-20)
DX: A41.9 Sepsis, unspecified organism (principal); R65.21 Severe sepsis with septic shock; J69.0 Pneumonitis due to inhalation of food and vomit; J96.02 Acute respiratory failure with hypercapnia; G92 Toxic encephalopathy; J96.01 Acute respiratory failure with hypoxia; J44.0 Chronic obstructive pulmonary disease with (acute) lower respiratory infection; J44.1 Chronic obstructive pulmonary disease with (acute) exacerbation; C85.83 Other specified types of non-Hodgkin lymphoma, intra-abdominal lymph nodes; N39.0 Urinary tract infection, site not specified; J90 Pleural effusion, not elsewhere classified; J98.11 Atelectasis; E87.5 Hyperkalemia; G47.33 Obstructive sleep apnea (adult) (pediatric); Z99.81 Dependence on supplemental oxygen
CPT/HCPCS: 31500; 31720; 36415; 36569; 36600; 38505; 51702; 70450; 71045; 71260; 76942; 80047; 80048; 80053; 81001; 82330; 82550; 82553; 82803; 82947; 83605; 83615; 83735; 84100; 84132; 84145; 84443; 84484; 84550; 85014; 85025; 85027; 85610; 85730; 87040; 87070; 87077; 87086; 87205; 87804; 88184; 88185; 88305; 88341; 88342; 93005; 93010; 93306; 94002; 94003; 94640; 94667; 94761; 94762; 96365-59; 96375-59; 99291-25; C1751; C9113; G0480; J0610; J0696; J1650; J1815; J1940; J2060; J2310; J2543; J2704; J2920; J2930; J3010; J3370; J7030; J7040; J7050; J7060; J7512; Q9967

== ENCOUNTER 2022-07-12 09:47 | Day surgery (SDC) | payer OTHER ==
[~2022-07-12] VITALS: Ht 167.6 cm; Wt 102.8 kg
[~2022-07-12 09:47] MED LIST changes: +ALBU90OI INH; +ALLERCLEAR10 MG PO; +AMOCLA875 PO; +COLACE100 MG PO; +DELTASONE20 MG PO; +Flonase 0.05% N16 GM; +LISI20 PO; +OXYM.05NI; +STRIVERDI RESPIM4 GM INH; +Sudogest60 MG PO; +TIOT18 INH
[2022-07-12] MEDS ORDERED: BENADRYL25 MG PO (10:07)
--- NOTE | 2022-07-12 10:11 | NUR ---
07/12/22 1011 Padmini Shepard AT 1006 PLEDGET AT 1008
--- NOTE | 2022-07-12 13:03 | NUR ---
07/12/22 1303 DanielleKaren PATIENT HAD EXPIRATORY WHEEZES IN STEPDOWN THAT WERE CLEARED BY COUGHING AND THEN WHEN REASSESSED PATIENT HAD DIMINSHED LUNG SOUNDS. PATIENT REPORTS HIS OXYGEN SATURATION NORMALLY IS 88-92% ON [facility]. HE REPORTS NO SHORTNESS OF BREATH AND EXPRESSES READINESS TO GO HOME.
== END 2022-07-12 13:01 | disposition home or self-care (01) ==
LOC: ORSCSDS 09:47
PROVIDERS: Ophthalmology
PROC: 08RK3JZ Replacement of Left Lens with Synthetic Substitute, Percutaneous Approach (ICD-10-PCS; principal; 2022-07-12 11:00)
DX: H25.12 Age-related nuclear cataract, left eye (principal); H52.202 Unspecified astigmatism, left eye; I10 Essential (primary) hypertension; F17.210 Nicotine dependence, cigarettes, uncomplicated; G47.33 Obstructive sleep apnea (adult) (pediatric); F41.9 Anxiety disorder, unspecified; Z79.899 Other long term (current) drug therapy
CPT/HCPCS: J2001; J2250; J3010; J3301; J7040; V2632

== ENCOUNTER 2022-07-26 09:39 | Day surgery (SDC) | payer OTHER ==
[~2022-07-26] VITALS: Ht 167.6 cm; Wt 103.0 kg
[~2022-07-26 09:39] MED LIST changes: +BENADRYL25 MG PO
--- NOTE | 2022-07-26 10:42 | NUR ---
07/26/22 1042 Lily Cantor TETRACAINE TO RIGHT EYE AT 1037 PLEDGET TO RIGHT EYE AT 1039 BY [facility].G
== END 2022-07-26 12:00 | disposition home or self-care (01) ==
LOC: ORSCSDS 09:39
PROVIDERS: Ophthalmology
PROC: 08RJ3JZ Replacement of Right Lens with Synthetic Substitute, Percutaneous Approach (ICD-10-PCS; principal; 2022-07-26 11:00)
DX: H25.11 Age-related nuclear cataract, right eye (principal); H52.201 Unspecified astigmatism, right eye; I10 Essential (primary) hypertension; Z87.891 Personal history of nicotine dependence; E66.9 Obesity, unspecified; Z68.36 Body mass index [BMI] 36.0-36.9, adult; Z79.899 Other long term (current) drug therapy
CPT/HCPCS: J2001; J2250; J3010; J3301; J7040; V2632

== ENCOUNTER → 2023-06-20 | Outpatient (CLI) | payer OTHER | LOC: LAB 17:55 → LAB SHORT 17:55 | DX: L08.9 Local infection of the skin and subcutaneous tissue, unspecified (principal); S10.83XA Contusion of other specified part of neck, initial encounter | CPT/HCPCS: 87070; 87077; 87186; 87205 ==

== ENCOUNTER → 2023-06-25 | Outpatient (CLI) | payer OTHER | END | disposition home or self-care (01) | LOC: LAB SHORT 17:21 → LAB 17:21 | DX: L08.9 Local infection of the skin and subcutaneous tissue, unspecified (principal); S11.80XA Unspecified open wound of other specified part of neck, initial encounter | CPT/HCPCS: 87070; 87075; 87077; 87186; 87205 ==

== ENCOUNTER 2023-12-02 13:42 | Inpatient (IN) | payer OTHER ==
[~2023-12-02] VITALS: Ht 170.2 cm; Wt 99.8 kg
[~2023-12-02 13:42] MED LIST changes: +BACITRACIN ZIN1 EAC1 TOP; +DULERA 100 MCG/13 GM INH; +MONT10T PO
[2023-12-02] MEDS ORDERED: Naloxone HCl 1MG / ML 2ML SYR IV ONE ×2 (14:30→15:10)
[2023-12-02 15:07] LABS: BASOPHILS PERCENT AUTO 1 % (0-2); EOSINOPHILS ABSOLUTE AUTO 0.03 K/mm3 (0.00-0.68); EOSINOPHILS PERCENT AUTO 0 % (0-6); Hematocrit 44.9 % (37.0-53.0); Hemoglobin 12.4 g/dL (13.5-17.5); IMMATURE GRAN ABSOLUTE AUTO 0.45 K/mm3 (0.00-0.10); IMMATURE GRAN PERCENT AUTO 5 % (0-1); LYMPHOCYTES ABSOLUTE AUTO 1.93 K/mm3 (0.84-5.20); LYMPHOCYTES PERCENT AUTO 19 % (21-46); MONOCYTES ABSOLUTE AUTO 0.95 K/mm3 (0.16-1.47); MONOCYTES PERCENT AUTO 10 % (4-13); Mean Corpuscular HGB 28.9 pg (26.0-34.0); Mean Corpuscular HGB Conc 27.6 g/dL (31.5-36.5); Mean Corpuscular Volume 105 fL (80-100); Mean Platelet Volume 11.2 fL (9.1-12.4); NEUTROPHILS ABSOLUTE AUTO 6.56 K/mm3 (1.96-9.15); NEUTROPHILS PERCENT AUTO 65 % (41-73); NRBC ABSOLUTE 0.07 K/mm3 (0.00-0.02); NRBC Auto 0.7 /100 WBC (0.0-0.2); Platelet Count 178 K/mm3 (150-400); RDW Coefficient Variation 18.2 % (11.7-14.2); RDW Standard Deviation 70.6 fL (35.1-46.3); Red Blood Cell Count 4.29 M/mm3 (4.30-5.90); White Blood Cell Count 10.02 K/mm3 (4.00-11.30)
[2023-12-02 15:15] LABS: pH Blood Venous 7.29 (7.34-7.37)
[2023-12-02 15:16] LABS: Base Excess Venous 14.6 mmol/L; Bicarbonate Venous 34.8 mmol/L (24.0-30.0); PCO2 Venous 86.8 mmHg (38-42)
[2023-12-02] MEDS ORDERED: Flumazenil 0.1 MG / ML 5ML Vial IV ONE ×2 (15:30→15:40)
[2023-12-02] MEDS ORDERED: Furosemide 10 MG/ML 4ML Vial IV ONE (15:40)
[2023-12-02 15:42] LABS: Ethanol (Alcohol), Blood, Med <3 mg/dL; Salicylate <1.7 mg/dL (2.8-20.0)
[2023-12-02 15:44] LABS: Acetaminophen, Random <2.0 ug/mL (10.0-30.0); Alanine Aminotransfer (ALT/SGP 22 U/L (12-78); Albumin, Blood 3.7 g/dL (3.4-5.0); Albumin/Globulin Ratio 1.2 (0.8-1.8); Alk Phos 74 U/L (50-136); Anion Gap 3 mmol/L (3-11); Aspartate Aminotrans (AST/SGOT 22 U/L (12-37); Bilirubin, Total 0.6 mg/dL (0.1-1.0); Blood Urea Nitrogen 19 mg/dL (8-24); Bun/Creatinine Ratio 29.2 (12.0-20.0); CO2, Blood 43 mmol/L (21-32); Calcium, Blood 8.6 mg/dL (8.5-10.1); Chloride, Blood 100 mmol/L (98-108); Creatinine, Blood 0.65 mg/dL (0.60-1.20); Glomerular Filtration Rate 99 (60-); Glucose, Blood 118 mg/dL (70-99); Potassium, Blood 5.3 mmol/L (3.5-5.5); Sodium, Blood 141 mmol/L (136-145); Total Protein, Blood 6.7 g/dL (6.4-8.2)
[2023-12-02] MEDS ORDERED: CefTRIAXone Sodium 1,000 MG in NS 50 ML IV ONE (15:45)
[2023-12-02] MEDS ORDERED: Azithromycin 500 MG in NS 250 ML IV ONE (15:45)
[2023-12-02 15:51] LABS: Magnesium, Blood 2.9 mg/dL (1.6-2.4); Thyroid Stimulating Hormone 1.4 uIU/mL (0.360-4.800)
[2023-12-02 16:02] LABS: U Amphetamine Screen Not Detected; U Barbituate Screen Not Detected; U Benzodiazapine Screen Not Detected; U Buprenorphine Screen Not Detected; U Cannabinoids Screen DETECTED; U Cocaine Screen Not Detected; U Methadone Screen Not Detected; U Methamphetamine Screen Not Detected; U Opiates Screen Not Detected; U Oxycodone Screen Not Detected; U Phencyclidine Screen Not Detected
[2023-12-02 16:40] LABS: Source, Urine Foley catheter
[2023-12-02 16:46] LABS: Appearance, Urine Clear (Clear); Bilirubin, Urine Neg (Neg); Blood, Urine 3+ (Neg); Color, Urine Amber (P-Yellow); Glucose Qualitative, Urine Neg (Neg); Ketones, Urine Neg (Neg); Leukocyte Esterase, Urine Neg (Neg); Nitrite, Urine Neg (Neg); Protein, Urine 3+ (Neg); Specific Gravity, Urine 1.025 (1.003-1.022); Urobilinogen, Urine 2+ (Normal)
[2023-12-02] MEDS ORDERED: Albuterol 2.5 MG/3 ML VIAL INH ONE (16:50)
[2023-12-02 16:59] LABS: Bacteria Few /hpf; Squamous Epithelial Cells Few /hpf (Few); White Blood Cells, Urine 0-2 /hpf (0-5)
[2023-12-02 17:00] LABS: Hyaline Casts 0-2 /lpf (0-2); Renal Epithelial Rare /hpf (0-Rare)
[2023-12-02] MEDS ORDERED: Ondansetron HCl 2 MG / ML 2ML Vial IV PRN (19:45)
[2023-12-02] MEDS ORDERED: Enoxaparin 40 MG/0.4 ML SYR SC SCH (20:00)
[2023-12-02] MEDS ORDERED: LORazepam 2 MG/ML 1ML Injection ONE (20:42)
[2023-12-02] MEDS ORDERED: LORazepam 2 MG/ML 1ML Injection IV PRN ×2 (20:45→20:50)
[2023-12-02 20:50] VITALS: BP 138/71
[2023-12-02] MEDS ORDERED: Morphine Sulfate 10 MG/ML 1MLSYR IV PRN (20:50)
[2023-12-02] MEDS ORDERED: HYDROmorphone HCl/Pf 1MG SYR IV PRN (20:50)
[2023-12-02] MEDS ORDERED: Morphine Sulfate 20 MG/1ML 1 ML Oral Syringe SL PRN (20:50)
[2023-12-02] MEDS ORDERED: Scopolamine Hydrobromide Patch TOP PRN (20:50)
[2023-12-02] MEDS ORDERED: Atropine Sulfate 1% Opth Soln 2ML BTL SL PRN (20:50)
--- NOTE | 2023-12-02 21:00 | NUR ---
ARRIVAL TO UNIT AFTER RECEIVING REPORT FROM CRYSTAL NASH, PATIENT TRANSFERRED TO UNIT VIA ED [facility] AT APPROX 2040. PATIENT RESTLESS, PULLING AT LINES, DEVICES, CARMONA CATHETER. PATIENT DUSKY IN COLOR. PATIENT ON BIPAP, SATs IN THE 70s. ATTEMPTING TO REMOVE BIPAP MASK, EDUCATION PROVIDED ON IMPORTANCE OF KEEPING MASK ON TO ASSIST IN BREATHING. PATIENT MOVED FROM [place]OWER [place] TO BED. PATIENT CONTINUING TO THRASH IN BED, PULL AT MASK. GRANDDAUGHTER, ARAM, AT BEDSIDE STATING THAT PATIENT WOULD NOT WANT THIS. DNR/DNI PAPERWORK AT BEDSIDE. RR 30s-40s. LUNGS DIMINISHED T/O. EXPERIENCED AN EPISODE OF UNRESPONSIVENESS, APNEA FOR APPROX 30 SECONDS ON BIPAP. FULL CODE ORDER IN PLACE AT ARRIVAL TO UNIT. THIS RN NOTIFIED BY HOLLIS NASH (SEE HOLLIS's NOTE) REGARDING VERBAL ORDER OF DNR/DNI. COMFORT CARE STATUS. CARMEN AT BEDSIDE T/O ASSISTING WITH CARE THROUGHOUT. SEE HOLLIS GUALLPA's NOTE REGARDING CONTACT WITH MARY AVILA. BIPAP MASK IN PLACE, 100% FI02. SATs <90%. AWAITING FAMILY TO COME TO BEDSIDE FOR SUPPORT OF GRANDDAUGHTER PRIOR TO CONTINUING WITH COMFORT CARE PROCESS.
--- NOTE | 2023-12-02 21:13 | NUR ---
UPDATE PATIENT ARRIVED TO PCU 20 AT 2039, WAS TRANSFERRED TO THE BED WITH THE HELP OF ER, PCU AND RT. ONCE PATIENT MOVED TO BED, PATIENT BECOME AGITATED AND BEGAIN PULLING OFF BIPAP MASK. PATIENT WAS DUSKY IN COLOR, SPO2 MID 70s AND PATIENT WAS EDUCATED ON IMPORTANCE OF KEEPING THE MASK ON TO ASSIST WITH BREATHING. GRANDDAUGHLILI CHIU AT BEDSIDE STATING HER GRANDFATHER WOULD NOT WANT THIS AND HAS DNR/DNI PAPERWORK. PATIENT ADMITTED A FULL CODE. PATIENT CONTINUING TO THRASH IN BED AND PULL AT MASK. THIS RN CALLED HOSPITALIST JACOBY, BOBBY RECEIVED FOR DNR AND ATIVAN TO ASSIST WITH KEEPING MASK ON. PRIMARY RN ESTEBAN AND CARMEN RN AT BEDSIDE WITH PATIENT. PATIENT HAD APNEIC SPELL ON BIPAP AND IT WAS CONFIRMED WITH THIS RN AND PRIMARY RN THAT PATIENT IS DNR. GRANDDAUGHTER AT BEDSIDE WANTING TO PERSUE COMFORT CARE. THIS RN RECEIVED CALL FROM MARY AVILA WHO IS PATIENT'S LEGAL POA PER PAPERWORK THAT GRANDDAUGHTER BROUGHT IN. MARY UPDATED. PAPERWORK GONE OVER WITH PRIMARY RN, THIS RN AND NURSING APPLICATION TRAINER. NURSING APPLICATION TRAINER CALLED MARY WITH FURTHER UPDATE AND AGREED THAT PATIENT SHOULD BE COMFORT CARE. WAITING FAMILY TO COME TO BEDSIDE FOR SUPPORT OF GRANDDAUGHTER PRIOR TO CONTINUING WITH COMFORT CARE PROCESS.
[2023-12-02 21:20] VITALS: BP 104/55
--- NOTE | 2023-12-02 21:59 | NUR ---
PATIENT HAS AN ALLERGY TO CODEINE. MD CARVER CONTACTED. RECEIVED ORDER TO DC MORPHINE FOR AIR HUNGER. ORDER FOR FENTANYL 25MCG-50MCG Q1H FOR AIR HUNGER. BIPAP MASK REMOVED. PLACED ON 6L VIA NC. WILL CONTINUE TO MONITOR.
[2023-12-02] MEDS ORDERED: FentaNYL Citrate 50 MCG/ML 2 ML Injection IV PRN (22:00)
--- NOTE | 2023-12-02 22:21 | NUR ---
FINAL DISCHARGE THIS RN TO ROOM TO ADMINISTER IV ATIVAN AND IV FENTANYL. ADMINISTERED PER EMAR. GRANDDAUGHTER AND SUPPORTING FRIENDS AT BEDSIDE. PATIENT APNEIC, DUSKY IN COLOR. HOLLIS GUALLPA RN TO BEDSIDE FOR SECOND CONFIRMATION. TIME OF CALLED 2210. MADE AWARE. THIS RN CONTACTED DELMAR GUTIÉRREZ REGARDING . DELMAR IS UNSURE OF HOME, BUT IS REQUESTING [facility]. BAND INSTRUMENT REPAIRER PAYTON TO CALL DATA PROCESSING CONSULTANT AND [facility].
--- NOTE | 2023-12-03 00:34 | NUR ---
DEPARTURE PATIENT DISCHARGED FROM UNIT VIA [facility] TRANSPORT AT APPROX 0030.
[2023-12-03] MEDS ORDERED: CefTRIAXone Sodium 1,000 MG in NS 100 ML IV SCH (16:00)
[2023-12-03] MEDS ORDERED: Azithromycin 500 MG in NS 250 ML IV SCH (17:00)
== END 2023-12-03 00:30 | DRG 917 ==
LOC: ER 13:42 → PCU 13:43
PROVIDERS: Emergency Medicine; Student in an Organized Health Care Education/Training Program; ADMIT Internal Medicine
PROC: 3E03329 Introduction of Other Anti-infective into Peripheral Vein, Percutaneous Approach (ICD-10-PCS; principal; 2023-12-02)
PROC: 5A09357 Assistance with Respiratory Ventilation, Less than 24 Consecutive Hours, Continuous Positive Airway Pressure (ICD-10-PCS; 2023-12-02)
PROC: 0T9B70Z Drainage of Bladder with Drainage Device, Via Natural or Artificial Opening (ICD-10-PCS; 2023-12-02)
DX: T42.4X1A Poisoning by benzodiazepines, accidental (unintentional), initial encounter (principal); J96.01 Acute respiratory failure with hypoxia; J96.02 Acute respiratory failure with hypercapnia; J44.1 Chronic obstructive pulmonary disease with (acute) exacerbation; C34.90 Malignant neoplasm of unspecified part of unspecified bronchus or lung; E87.29 Other acidosis; J81.1 Chronic pulmonary edema; M19.90 Unspecified osteoarthritis, unspecified site; Z85.048 Personal history of other malignant neoplasm of rectum, rectosigmoid junction, and anus; Z66 Do not resuscitate; Z51.5 Encounter for palliative care; Z88.5 Allergy status to narcotic agent; Z79.899 Other long term (current) drug therapy; F31.9 Bipolar disorder, unspecified; F17.210 Nicotine dependence, cigarettes, uncomplicated; Z99.81 Dependence on supplemental oxygen; H93.19 Tinnitus, unspecified ear; Z98.890 Other specified postprocedural states; Z90.49 Acquired absence of other specified parts of digestive tract; R56.9 Unspecified convulsions
CPT/HCPCS: 51702; 71045; 80053; 81001; 82803; 82947; 83735; 83880; 84443; 85025; 93005; 93010; 94640; 94660; 94664; 96365-59; 96367-59; 96375-59; 96376-59; 99285-25; G0378; G0480; J0456; J0696; J1170; J1940; J2060; J2310; J3010; J7050